=== PATIENT | female | born 2000 | race Caucasian/White ===

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

== ENCOUNTER 2018-08-27 10:37 | Emergency (ER) | payer MEDICAID ==
[2018-08-27] MEDS ORDERED: Sodium Chloride 0.9% 1000 ML 1,000 ML IV STA ×2 (11:54→13:41)
[2018-08-27] MEDS ORDERED: Zofran 4 MG/2 ML VIAL IV ONE (11:54)
[2018-08-27] MEDS ORDERED: Sodium Chloride 0.9% 1000 ML 1,000 ML ONE ×2 (11:59→14:08)
[2018-08-27] MEDS ORDERED: Zofran 4 MG/2 ML VIAL ONE (11:59)
[2018-08-27 12:09] LABS: Hematocrit 41.4 % (35-47); Mean Cell Volume 91.4 fl (78-100); Mean Corpuscular Hemoglobin 30.9 pg (26-32); Mean Corpuscular Hgb Concent. 33.8 g/dl (32-36); Mean Platelet Volume 10.3 fl (6-9.5); Platelet Count 387 K/mm3 (150-450); Red Blood Count 4.53 M/mm3 (4.1-5.4); Red Cell Distribution Width 13.7 % (11.5-14.0)
[2018-08-27 12:19] LABS: White Blood Count 28.9 K/mm3 (4.0-10.5)
[2018-08-27 12:41] LABS: BAND 7 % (0.0-2.0); Lymphocytes 1 % (24-44); Monocyte 5 % (0.0-12.0); Neutrophils 87 % (36.0-66.0); Platelet Estimate NORMAL (NORMAL); Total Cells Counted 100; Toxic Granulation 2+
[2018-08-27] MEDS ORDERED: Hydromorphone 1 mg/ml Ampule IV ONE (12:56)
[2018-08-27] MEDS ORDERED: Hydromorphone 1 mg/ml Ampule ONE (13:04)
[2018-08-27 13:05] LABS: ALBUMIN 4.2 g/dL (3.5-5.0); ALKALINE PHOSPHATASE 125 U/L (38-126); AMYLASE 44 U/L (30-110); ANION GAP 18.7 MEQ/L (5-15); BLOOD UREA NITROGEN 19 mg/dL (7-17); CHLORIDE 97 mmol/L (98-107); Calcium 9.9 mg/dL (8.4-10.2); Carbon Dioxide 22 mmol/L (22-30); Creatinine 1 0.75 mg/dL (0.52-1.04); Glucose 127 mg/dL (74-106); LIPASE 22 U/L (23-300); Potassium 3.9 mmol/L (3.5-5.1); SGOT/AST 14 U/L (14-36); SGPT/ALT 13 U/L (0-35); SODIUM 134 mmol/L (137-145); Total Protein 8.4 g/dL (6.3-8.2)
--- NOTE | 2018-08-27 13:05 | XRAY ---
Indication: Abdomen pain. Multiple contiguous axial images obtained through the abdomen and pelvis without contrast as ordered. Comparison: None Lung bases are clear. Heart is not enlarged. Stomach, small bowel, and large bowel loops are mild/moderately fluid distended throughout with synchronous fluid leveling and mild wall thickening, ileus versus gastroenterocolitis. No free fluid/air. Tiny appendicolith without features for acute appendicitis. Remaining liver, gallbladder, pancreas, spleen, adrenal glands, kidneys, ureters, bladder, uterus, and aorta appear unremarkable for noncontrast exam. Osseous structures intact. No ventral or inguinal hernias. Impression: 1. Abnormal fluid distended stomach and small/large bowel loops with fluid leveling and wall thickening. Rule out ileus versus gastroenterocolitis. 2. Appendicolith without appendicitis. CTDI 8.89
--- NOTE | 2018-08-27 13:11 | ERPHSYRPT ---
- History of Present Illness Time Seen by Provider: 08/27/18 11:50 Historian: patient Exam Limitations: no limitations Patient Subjective Stated Complaint: pain in upper medial abdomen that radiates over the entire abdomen, N&V, diarrhea Triage Nursing Assessment: gait steady, color pink, dry, N&V, diarrhea, abdominal pain in upper medial area that radiates to entire abdomen, rates pain 6/10 and states that the pain does get higher, Physician History: 18 y/o white female presents with bilat upper abd pain with radiation and localization to bilat lower abd pain over 4 days. pt has had vomiting and diarrhea as well. pain worsening. no prior abd surgeries Timing/Duration: day(s) (4) Abdominal Pain Onset Location: RUQ, LUQ Pain Radiation: RLQ, LLQ Severity of Pain-Max: moderate Severity of Pain-Current: moderate Modifying Factors: Improves With: nothing Associated Symptoms: diarrhea, loss of appetite, nausea, vomiting Previous symptoms: no prior history Allergies/Adverse Reactions: No Known Drug Allergies Allergy (Verified 08/27/18 11:10) Hx Tetanus, Diphtheria Vaccination/Date Given: Yes Hx Influenza Vaccination/Date Given: No Hx Pneumococcal Vaccination/Date Given: No - Review of Systems Constitutional: No Symptoms Eyes: No Symptoms Ears, Nose, & Throat: No Symptoms Respiratory: No Symptoms Cardiac: No Symptoms Abdominal/Gastrointestinal: Abdominal Pain, Nausea, Vomiting, Diarrhea, Appetite Changes Genitourinary Symptoms: No Symptoms Musculoskeletal: No Symptoms Skin: No Symptoms Neurological: No Symptoms Psychological: No Symptoms Endocrine: No Symptoms Hematologic/Lymphatic: No Symptoms Immunological/Allergic: No Symptoms All Other Systems: Reviewed and Negative - Past Medical History Pertinent Past Medical History: No Neurological History: No Pertinent History ENT History: No Pertinent History Cardiac History: No Pertinent History Respiratory History: No Pertinent History Endocrine Medical History: No Pertinent History Musculoskeletal History: No Pertinent History GI Medical History: No Pertinent History History: No Pertinent History Psycho-Social History: No Pertinent History Female Reproductive Disorders: No Pertinent History - Past Surgical History Past Surgical History: No - Social History Smoking Status: Current every day smoker How long have you smoked: 6 years Exposure to second hand smoke: Yes Drug Use: marijuana Patient Lives Alone: No - Female History Hx Last Menstrual Period: 08/19/2018 Hx Now: No - Nursing Vital Signs Nursing Vital Signs: Initial Vital Signs Temperature 97.7 F 08/27/18 10:53 Pulse Rate 100 H 08/27/18 10:53 Blood Pressure 126/82 08/27/18 10:53 O2 Sat by Pulse Oximetry 97 08/27/18 10:53 Pain Scale Pain Intensity 4 - Physical Exam General Appearance: moderate distress, alert, anxiety Eye Exam: PERRL/EOMI Ears, Nose, Throat Exam: normal ENT inspection, moist mucous membranes Neck Exam: normal inspection, non-tender, supple, full range of motion Respiratory Exam: normal breath sounds, lungs clear, airway intact, No chest tenderness, No respiratory distress Cardiovascular Exam: regular rate/rhythm, normal heart sounds, normal peripheral pulses Gastrointestinal/Abdomen Exam: soft, normal bowel sounds, tenderness, guarding ( bilat lower quadrants), No rebound Pelvic Exam: not done Rectal Exam: not done Back Exam: normal inspection, normal range of motion, No CVA tenderness, No vertebral tenderness Extremity Exam: normal inspection, normal range of motion, pelvis stable Neurologic Exam: alert, oriented x 3, cooperative, cray fishing hand II-XII nml as tested Skin Exam: normal color, warm, dry Lymphatic Exam: No adenopathy SpO2: 98 O2 Delivery: Room Air - Course Nursing assessment & vital signs reviewed: Yes Ordered Tests: Active Orders 24 hr Category Date Time Status IV Insertion STAT Care 08/27/18 11:54 Active NPO (ED) STAT Care 08/27/18 11:54 Active ABDOMEN AND PELVIS W/0 CONTRAS [CT] Stat Exams 08/27/18 11:55 Completed AMYLASE Stat Lab 08/27/18 11:45 Completed CBC W DIFF Stat Lab 08/27/18 11:45 Completed CMP Stat Lab 08/27/18 11:45 Completed CULTURE,URINE Stat Lab 08/27/18 13:35 Received HCG QUALITATIVE,SERUM Stat Lab 08/27/18 12:05 Completed LIPASE Stat Lab 08/27/18 11:45 Completed Lactic Acid Stat Lab 08/27/18 11:54 Completed Manual Differential NC Stat Lab 08/27/18 11:45 Completed Pathologist Review Stat Lab 08/27/18 11:45 Completed UA W/RFX UR CULTURE Stat Lab 08/27/18 13:35 Completed Urine Triage Profile Stat Lab 08/27/18 13:35 Received Medication Summary Generic Name Dose Route Start Last Admin Trade Name Freq PRN Reason Stop Dose Admin Sodium Chloride 1,000 mls @ 999 mls/hr 08/27/18 13:41 Sodium Chloride 0.9% 1000 Ml IV 08/27/18 14:41 .Q1H1M STA Discontinued Medications Generic Name Dose Route Start Last Admin Trade Name Peyton PRN Reason Stop Dose Admin Ciprofloxacin 500 mg 08/27/18 13:42 Cipro 500 Mg PO 08/27/18 13:43 STAT ONE Hydromorphone HCl 0.5 mg 08/27/18 12:56 08/27/18 13:06 Hydromorphone 1 Mg/Ml Ampule IV 08/27/18 12:57 0.5 mg STAT ONE Administration Hydromorphone HCl Confirm 08/27/18 13:04 Hydromorphone 1 Mg/Ml Ampule Administered 08/27/18 13:05 Dose 1 mg .ROUTE .STK-MED ONE Sodium Chloride 1,000 mls @ 999 mls/hr 08/27/18 11:54 08/27/18 13:14 Sodium Chloride 0.9% 1000 Ml IV 08/27/18 12:54 Infused .Q1H1M STA Infusion Sodium Chloride Confirm 08/27/18 11:59 Sodium Chloride 0.9% 1000 Ml Administered 08/27/18 12:00 Dose 1,000 mls @ ud .ROUTE .STK-MED ONE Metronidazole 500 mg 08/27/18 13:42 Flagyl 500 Mg PO 08/27/18 13:43 STAT ONE Ondansetron HCl 4 mg 08/27/18 11:54 08/27/18 12:06 Zofran 4 Mg/2 Ml Vial IV 08/27/18 11:55 4 mg STAT ONE Administration Ondansetron HCl Confirm 08/27/18 11:59 Zofran 4 Mg/2 Ml Vial Administered 08/27/18 12:00 Dose 4 mg .ROUTE .STK-MED ONE Lab/Rad Data: Laboratory Result Diagrams 08/27/18 11:45 08/27/18 11:45 Laboratory Results 08/27/18 08/27/18 08/27/18 Range/Units 13:35 12:05 11:54 WBC (4.0-10.5) K/mm3 RBC (4.1-5.4) M/mm3 Hgb (12.0-16.0) gm/dl Hct (35-47) % MCV (78-100) fl MCH (26-32) pg MCHC (32-36) g/dl RDW (11.5-14.0) % Plt Count (150-450) K/mm3 MPV (6-9.5) fl Segmented Neutrophils (36.0-66.0) % Band Neutrophils (0.0-2.0) % Lymphocytes (Manual) (24-44) % Monocytes (Manual) (0.0-12.0) % Toxic Granulation Platelet Estimate (NORMAL) RBC Morphology Smear Path Review Sodium (137-145) mmol/L Potassium (3.5-5.1) mmol/L Chloride (98-107) mmol/L Carbon Dioxide (22-30) mmol/L Anion Gap (5-15) MEQ/L BUN (7-17) mg/dL Creatinine (0.52-1.04) mg/dL Estimated GFR ML/MIN Glucose (74-106) mg/dL Lactic Acid 1.5 (0.4-2.0) Calcium (8.4-10.2) mg/dL Total Bilirubin (0.2-1.3) mg/dL AST (14-36) U/L ALT (0-35) U/L Alkaline Phosphatase (38-126) U/L Serum Total Protein (6.3-8.2) g/dL Albumin (3.5-5.0) g/dL Amylase (30-110) U/L Lipase (23-300) U/L Serum , Qual NEGATIVE (Negative) Urine Color YELLOW (YELLOW) Urine Appearance SLIGHTLY CLOUDY (CLEAR) Urine pH 5.0 (5-6) Ur Specific [place] 1.026 (1.005-1.025) Urine Protein 100 (Negative) Urine Ketones MODERATE (NEGATIVE) Urine Blood MODERATE (0-5) Mohsen/ul Urine Nitrite NEGATIVE (NEGATIVE) Urine Bilirubin NEGATIVE (NEGATIVE) Urine Urobilinogen NEGATIVE (0-1) mg/dL Ur Leukocyte Esterase TRACE (NEGATIVE) Urine WBC (Auto) 16-25 (0-5) /HPF Urine RBC (Auto) 6-10 (0-2) /HPF U Hyaline Cast (Auto) 3-5 (0-2) /LPF U Epithel Cells (Auto) RARE (FEW) /HPF Urine Bacteria (Auto) FEW (NEGATIVE) /HPF Urine Mucus (Auto) MODERATE (NEGATIVE) /HPF Urine Culture Reflexed YES (NO) Urine Glucose NEGATIVE (NEGATIVE) mg/dL 08/27/18 08/27/18 Range/Units 11:45 11:45 WBC 28.9 H* (4.0-10.5) K/mm3 RBC 4.53 (4.1-5.4) M/mm3 Hgb 14.0 (12.0-16.0) gm/dl Hct 41.4 (35-47) % MCV 91.4 (78-100) fl MCH 30.9 (26-32) pg MCHC 33.8 (32-36) g/dl RDW 13.7 (11.5-14.0) % Plt Count 387 (150-450) K/mm3 MPV 10.3 H (6-9.5) fl Segmented Neutrophils 87 H (36.0-66.0) % Band Neutrophils 7 H (0.0-2.0) % Lymphocytes (Manual) 1 L (24-44) % Monocytes (Manual) 5 (0.0-12.0) % Toxic Granulation 2+ Platelet Estimate NORMAL (NORMAL) RBC Morphology NORMAL Smear Path Review Sodium 134 L (137-145) mmol/L Potassium 3.9 (3.5-5.1) mmol/L Chloride 97 L (98-107) mmol/L Carbon Dioxide 22 (22-30) mmol/L Anion Gap 18.7 H (5-15) MEQ/L BUN 19 H (7-17) mg/dL Creatinine 0.75 (0.52-1.04) mg/dL Estimated GFR > 60.0 ML/MIN Glucose 127 H (74-106) mg/dL Lactic Acid (0.4-2.0) Calcium 9.9 (8.4-10.2) mg/dL Total Bilirubin 0.50 (0.2-1.3) mg/dL AST 14 (14-36) U/L ALT 13 (0-35) U/L Alkaline Phosphatase 125 (38-126) U/L Serum Total Protein 8.4 H (6.3-8.2) g/dL Albumin 4.2 (3.5-5.0) g/dL Amylase 44 (30-110) U/L Lipase 22 L (23-300) U/L Serum , Qual (Negative) Urine Color (YELLOW) Urine Appearance (CLEAR) Urine pH (5-6) Ur Specific [place] (1.005-1.025) Urine Protein (Negative) Urine Ketones (NEGATIVE) Urine Blood (0-5) Mohsen/ul Urine Nitrite (NEGATIVE) Urine Bilirubin (NEGATIVE) Urine Urobilinogen (0-1) mg/dL Ur Leukocyte Esterase (NEGATIVE) Urine WBC (Auto) (0-5) /HPF Urine RBC (Auto) (0-2) /HPF U Hyaline Cast (Auto) (0-2) /LPF U Epithel Cells (Auto) (FEW) /HPF Urine Bacteria (Auto) (NEGATIVE) /HPF Urine Mucus (Auto) (NEGATIVE) /HPF Urine Culture Reflexed (NO) Urine Glucose (NEGATIVE) mg/dL - Progress Progress: improved, pain not gone completely, re-examined Progress Note: 08/27/18 14:05 ct scan abd/pelvis-ileus vs enterocolitis 08/27/18 14:07 pt states she is feeling better. Counseled pt/family regarding: lab results, diagnosis, need for follow-up - Departure Departure Disposition: Home Clinical Impression: Enterocolitis, Leukocytosis Condition: Stable Critical Care Time: No Referrals: DOCTOR,NO FAMILY [Primary Care Provider] - Additional Instructions: drink plenty of fluids. take medications as prescribed. return to ED if symptoms worsen. Prescriptions: Ondansetron ODT 4 MG [Zofran Odt 4 mg] 4 mg PO Q6H PRN PRN #10 tab.rapdis PRN Reason: Vomiting Hydrocodone/APAP 5/325 [[place] 5/325 mg] 1 each PO Q8H PRN PRN #6 tablet MDD 3 PRN Reason: Pain Ciprofloxacin [Cipro 500 MG] 500 mg PO BID #14 tablet Metronidazole 500 mg [Flagyl 500 MG] 500 mg PO TID #21 tablet
[2018-08-27] MEDS ORDERED: Cipro 500 MG PO ONE (13:42)
[2018-08-27] MEDS ORDERED: Flagyl 500 MG PO ONE (13:42)
[2018-08-27 14:04] LABS: Appearance SLIGHTLY CLOUDY (CLEAR); Bacteria FEW /HPF (NEGATIVE); Bilirubin NEGATIVE (NEGATIVE); Blood MODERATE Ery/ul (0-5); Epithelial Cells RARE /HPF (FEW); Glucose NEGATIVE (NEGATIVE); Ketones MODERATE (NEGATIVE); Leukocyte Esterase TRACE (NEGATIVE); Mucus MODERATE /HPF (NEGATIVE); Nitrite NEGATIVE (NEGATIVE); Protein,Urine Dip 100 (Negative); Specific Gravity 1.026 (1.005-1.025); Urobilinogen NEGATIVE mg/dL (0-1)
[2018-08-27] MEDS ORDERED: Cipro 500 MG ONE (14:07)
[2018-08-27] MEDS ORDERED: Flagyl 500 MG ONE (14:08)
[2018-08-27 14:14] LABS: Amphetamine,Urine NEGATIVE (NEGATIVE); Barbiturate,Urine NEGATIVE (NEGATIVE); Benzodiazepine,Urine NEGATIVE (NEGATIVE); Cocaine,Urine NEGATIVE (NEGATIVE); Methadone,Urine NEGATIVE (NEGATIVE); Opiate,Urine NEGATIVE (NEGATIVE); PCP,Urine NEGATIVE (NEGATIVE); THC,Urine POSITIVE (NEGATIVE)
[2018-08-27 15:07] VITALS: BP 128/72; PULSE 70; O2SAT 72
== END 2018-08-27 15:08 | disposition home or self-care (01) ==
LOC: ED 10:37
DX: K52.9 Noninfective gastroenteritis and colitis, unspecified (principal); D72.829 Elevated white blood cell count, unspecified
CPT/HCPCS: 36000; 36415; 74176; 80053; 80307; 81001; 81025; 82150; 83605; 83690; 85025; 87086; 96360; 96361; 96374; 96375; 99284; J1170; J2405; A9270-GY